=== PATIENT | female | born 2000 | race Caucasian/White ===

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

== ENCOUNTER 2020-09-01 09:28 | Observation (INO) | payer OTHER ==
[~2020-09-01] VITALS: Ht 165.1 cm; Wt 68.2 kg
[2020-09-01] MEDS ORDERED: ZOLOFT (09:35)
[2020-09-01 09:53] LABS: BASOPHILS 0.9 % (0-2); HEMATOCRIT 46.8 % (36.0-48.0); HEMOGLOBIN 15.7 g/dL (12-16); LYMPHOCYTES 22.3 % (15-50); MCHC 33.5 g/dL (31.0-37.0); MCV 89.5 fL (80.0-100.0); MEAN PLATELET VOLUME 8.1 fL (7.4-10.4); MONOCYTES 5.7 % (2-11); NEUTROPHILS 70.1 % (40-80); RBC 5.23 10x6/uL (4.00-5.40); RDW 13.4 % (11.5-14.5); WBC 16.1 10x3/uL (4.8-10.8)
[2020-09-01 10:04] LABS: PLATELET COUNT 664 10x3/uL (130-400)
[2020-09-01 10:10] LABS: ANION GAP 29.4 mmol/L (8-16); CALCIUM 10.8 mg/dL (8.5-10.1); CARBON DIOXIDE 12.1 mmol/L (21.0-32.0); CREATININE - SERUM 1.1 mg/dL (0.6-1.3); POTASSIUM - SERUM 3.5 mmol/L (3.5-5.1)
[2020-09-01 10:16] LABS: ALBUMIN 4.1 g/dL (3.4-5.0); BILIRUBIN - TOTAL 0.44 mg/dL (0.2-1.3); PROTEIN - SERUM 9.5 g/dL (6.4-8.2)
[2020-09-01 14:49] VITALS: BP 108/78
[2020-09-01 16:28] LABS: HCG URINE NEGATIVE (NEGATIVE)
--- NOTE | 2020-09-01 16:30 | NUR ---
PT ARRIVED TO UNIT ACCOMPANIED BY HOSPITAL STAFF. AAO X4. RESP EVEN AND UNLABORED. PT SETTLED INTO ROOM. CLIR. BED IN LOWEST POSITION. SIDE RAILS X2
[2020-09-01 16:34] LABS: BACTERIA FEW HPF (<MOD); BILIRUBIN NEGATIVE (NEGATIVE); KETONE 4+ mg/dL (< 1+); NITRITE NEGATIVE (NEGATIVE); PH 5.5 (5.0-8.0); SQUAMOUS EPITHELIAL 4 HPF (0-4); UROBILINOGEN 2 mg/dL (< 2); WHITE CELLS - URINE 44 HPF (0-4)
[2020-09-01] MEDS ORDERED: ZOLOFT25 MG PO (18:08)
[2020-09-01] MEDS ORDERED: CARDIZEM30 MG PO (18:10)
--- NOTE | 2020-09-01 19:45 | NUR ---
RECEIVED BEDSIDE REPORT. PT LAYING IN BED A&O X4. PIV TO LEFT HAND PATENT AND INFUSING, NO REDNESS OR SWELLING. WEARS GLASSES. TELEMETRY IN PLACE, [address] PT ABLE TO AMBULATE AD NIDIA. EDUCATED PT ON CL AND NEEDS, VERBALIZED UNDERSTANDING. BED LOW, CL IN REACH.
[2020-09-01 20:20] VITALS: BP 119/68
[2020-09-02 00:50] VITALS: BP 128/78; Ht 165.1 cm; Wt 68.2 kg
[2020-09-02 05:16] LABS: BASOPHILS 1.2 % (0-2); EOSINOPHILS 2.4 % (0-7); HEMOGLOBIN 12.8 g/dL (12-16); LYMPHOCYTES 37.7 % (15-50); MCH 30.1 pg (26.0-34.0); MCHC 34.2 g/dL (31.0-37.0); MCV 87.9 fL (80.0-100.0); MONOCYTES 10.3 % (2-11); NEUTROPHILS 48.4 % (40-80); RBC 4.26 10x6/uL (4.00-5.40); RDW 13.3 % (11.5-14.5)
[2020-09-02 05:17] LABS: HEMATOCRIT 37.4 % (36.0-48.0); PLATELET COUNT 481 10x3/uL (130-400); WBC 9.7 10x3/uL (4.8-10.8)
[2020-09-02 05:26] LABS: ALBUMIN 3.1 g/dL (3.4-5.0); ALKALINE PHOSPHATASE 133 U/L (30-120); ALT (SGPT) 22 U/L (10-68); BILIRUBIN - TOTAL 0.36 mg/dL (0.2-1.3); CALCIUM 8.9 mg/dL (8.5-10.1); CHLORIDE - SERUM 108 mmol/L (98-107); CREATININE - SERUM 0.9 mg/dL (0.6-1.3); MAGNESIUM - SERUM 1.4 mg/dL (1.8-2.4); PHOSPHOROUS 2.8 mg/dL (2.5-4.9); PROTEIN - SERUM 7.3 g/dL (6.4-8.2); SODIUM 143 mmol/L (136-145); eGFR NON AFRICAN AMERICAN 84 mL/min (90-120)
[2020-09-02 05:27] LABS: CALC OSMOLALITY 280 mosm/kg (275-300); CARBON DIOXIDE 20.1 mmol/L (21.0-32.0); GLUCOSE 63 mg/dL (74-106); POTASSIUM - SERUM 2.9 mmol/L (3.5-5.1); UREA NITROGEN 6 mg/dL (7-18)
[2020-09-02 06:05] VITALS: BP 124/85
[2020-09-02 08:00] VITALS: BP 102/68
[2020-09-02 12:00] VITALS: BP 107/74
[2020-09-02 16:00] VITALS: BP 91/51
--- NOTE | 2020-09-02 16:21 | NUR ---
BLOOD SUGAR OF 82, NO COVERAGE NEEDED PER S/S. ENCOURAGED PT TO EAT DINNER SINCE SUGAR IS 82. PT RESTING COMFORTABLY IN BED, DENIES ANY NEEDS, CALL LIGHT IN REACH.
--- NOTE | 2020-09-02 19:56 | NUR ---
RECEIVED REPORT, WILL ASSUME CARE OF PT, DENIES ANY NEEDS AT THIS TIME, BED IS LOW, SRX2, CALL LIGHT IN REACH, WILL CONTINUE PLAN OF CARE
[2020-09-02 20:41] VITALS: BP 107/73
[2020-09-03 02:23] VITALS: BP 121/83
[2020-09-03 06:14] VITALS: BP 117/78
--- NOTE | 2020-09-03 07:00 | NUR ---
RECEIVED REPORT. ASSUMED CARE OF PATIENT. PATIENT RESTING WITH EYES CLOSED ON LEFT LATERAL SIDE. RESP EVEN AND UNLABORED. CALL LIGHT WITHIN REACH. NO VISITORS AT BEDSIDE. WHITE BOARD UPDATED, BEDSIDE SHIFT REPORT COMPLETE. NO DISTRESS.
[2020-09-03 07:13] LABS: BASOPHILS 0.8 % (0-2); EOSINOPHILS 4.3 % (0-7); HEMATOCRIT 34.9 % (36.0-48.0); HEMOGLOBIN 11.5 g/dL (12-16); LYMPHOCYTES 35.8 % (15-50); MCH 29.6 pg (26.0-34.0); MCV 89.8 fL (80.0-100.0); MEAN PLATELET VOLUME 8.8 fL (7.4-10.4); MONOCYTES 7.1 % (2-11); RBC 3.89 10x6/uL (4.00-5.40); RDW 13.6 % (11.5-14.5); WBC 7.9 10x3/uL (4.8-10.8)
[2020-09-03 07:14] LABS: PLATELET COUNT 364 10x3/uL (130-400)
[2020-09-03 07:45] VITALS: BP 104/65
[2020-09-03 07:56] LABS: ALBUMIN 2.7 g/dL (3.4-5.0); ALKALINE PHOSPHATASE 110 U/L (30-120); ALT (SGPT) 20 U/L (10-68); BILIRUBIN - TOTAL 0.34 mg/dL (0.2-1.3); CALCIUM 8.5 mg/dL (8.5-10.1); CARBON DIOXIDE 18.6 mmol/L (21.0-32.0); CHLORIDE - SERUM 106 mmol/L (98-107); CREATININE - SERUM 0.8 mg/dL (0.6-1.3); MAGNESIUM - SERUM 1.6 mg/dL (1.8-2.4); POTASSIUM - SERUM 3.7 mmol/L (3.5-5.1); PROTEIN - SERUM 5.6 g/dL (6.4-8.2); SODIUM 141 mmol/L (136-145); eGFR NON AFRICAN AMERICAN > 90 mL/min (90-120)
[2020-09-03 08:02] LABS: CALC OSMOLALITY 287 mosm/kg (275-300); GLUCOSE 274 mg/dL (74-106); UREA NITROGEN 4 mg/dL (7-18)
[2020-09-03] MEDS ORDERED: ZOFRAN ODT4 MG/UDTAB PO (10:32)
--- NOTE | 2020-09-03 11:23 | NUR ---
20 GAUGE IV REMOVED FROM LEFT HAND, CATHETER TIP INTACT, NO BLEEDING, 2X2 GAUZE APPLIED AND SECURED WITH BANDAID. TOELRATED IV REMOVAL WELL PATIENT IS DISCHARGING TO HOME. MEDICAL DEVICE SALES REMOVED AND RETURNED TO ICU TELEMTRY TECH DISCHARGE INSTRUCTIONS PROVIDED TO PATIENT. PATIENT VERBALIZED UNDERSTANDING OF ALL INSTRUCTIONS PROVIDED. PATIENT AWAITING FOR HER PARENTS TO COME AND PICK HER UP AT THIS TIME.
--- NOTE | 2020-09-03 11:36 | NUR ---
PATIENT LEFT UNIT BY WHEELCHAIR. PATIENT DISCHARGED TO HOME IN STABLE CONDITION WITH HER PARENTS. PATIENT DISCHARGED WITH ALL PERSONAL BELONGINGS.
== END 2020-09-03 11:36 | disposition home or self-care (01) ==
LOC: D.ER 09:28 → D.EDHOLD 12:47 → D.M2 12:47 → OBSVTIME 12:48 → D.M2 13:45
PROVIDERS: Family Medicine; ADMIT Family Medicine; ATTEND Family Medicine
DX: A08.4 Viral intestinal infection, unspecified (principal); E86.0 Dehydration; E10.9 Type 1 diabetes mellitus without complications; R11.2 Nausea with vomiting, unspecified; R19.7 Diarrhea, unspecified